=== PATIENT | male | born 1990 | race Caucasian/White ===

== ENCOUNTER 2017-07-15 17:12 | Emergency (ER) | payer MEDICAID ==
[2017-07-15] MEDS ORDERED: Sodium Chloride 0.9% 10 ML Syringe FLUSH PRN ×2 (17:31→21:25)
[2017-07-15] MEDS ORDERED: Sodium Chloride 0.9% 1,000 ML IV ONE (17:33)
[2017-07-15 17:43] VITALS: BP 114/62
[2017-07-15 18:33] LABS: CHLORIDE,CL 100 mmol/L (98-107); SODIUM,NA 131 mmol/L (136-145)
[2017-07-15] MEDS ORDERED: Iopamidol 612 MG/ML 100 ML Bottle IVPUSH ONE (18:47)
--- NOTE | 2017-07-16 02:23 | EDM.PDOC ---
ED HPI GENERAL MEDICAL PROBLEM - General Chief Complaint: Fever Stated Complaint: cancer pt running a fever Time Seen by Provider: 07/15/17 17:13 Source of Information: Reports: Patient History Limitations: Reports: No Limitations - History of Present Illness INITIAL COMMENTS - FREE TEXT/NARRATIVE: Pt. presents to ER with complaints of fever, weakness, and muscle pain. 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 Pt. states that he developed onset of these symptoms several days ago. Last chemo was 07/12/17. States that he is not experiencing any chest pain or shortness of breath. No abdominal pain. Pt. had a cystic abdominal lesion drained recently. Denies any cough, dysuria, or chest congestion. 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 Social & Family History - Tobacco Use Smoking Status *Q: Former Smoker Years of Tobacco use: 12 Packs/Tins Daily: 0.5 Used Tobacco, but Quit: Yes Month/Year Tobacco Last Used: june 2017 Tobacco Use Comment: relates quit a couple weeks ago - Alcohol Use Days Per Week of Alcohol Use: 0 Number of Drinks Per Day: 1 Total Drinks Per Week: 0 - Recreational Drug Use Recreational Drug Use: Yes Drug Use in Last 12 Months: Yes Recreational Drug Type: Reports: Marijuana/Hashish Recreational Drug Use Frequency: Daily ED ROS GENERAL - Review of Systems Review Of Systems: See Below Constitutional: Reports: Fever, Chills, Malaise, Weakness HEENT: Reports: No Symptoms Respiratory: Reports: No Symptoms Cardiovascular: Reports: No Symptoms Endocrine: Reports: No Symptoms GI/Abdominal: Reports: Other (See HPI) : Reports: No Symptoms Musculoskeletal: Reports: No Symptoms Skin: Reports: No Symptoms Neurological: Reports: No Symptoms Psychiatric: Reports: No Symptoms Hematologic/Lymphatic: Reports: No Symptoms Immunologic: Reports: No Symptoms ED EXAM, GENERAL - Physical Exam Exam: See Below Exam Limited By: No Limitations General Appearance: Alert, WD/WN, No Apparent Distress Eye Exam: Bilateral Eye: EOMI, Normal Fundi, Normal Inspection, PERRL Ears: Normal External Exam, Normal Canal, Hearing Grossly Normal, Normal TMs Ear Exam: Bilateral Ear: Auricle Normal, Canal Normal, TM normal Nose: Normal Inspection, Normal Mucosa, No Blood Throat/Mouth: Normal Inspection, Normal Lips, Normal Teeth, Normal Gums, Normal Oropharynx, Normal Voice, No Airway Compromise Head: Atraumatic, Normocephalic Neck: Normal Inspection, Supple, Non-Tender, Full Range of Motion Respiratory/Chest: No Respiratory Distress, Lungs Clear, Normal Breath Sounds, No Accessory Muscle Use, Chest Non-Tender Cardiovascular: Normal Peripheral Pulses, Regular Rate, Rhythm, No Edema, No Gallop, No JVD, No Murmur, No Rub Peripheral Pulses: 4+: Radial (L), Radial (R) GI/Abdominal: Normal Bowel Sounds, Soft, Non-Tender, No Organomegaly, No Distention, No Abnormal Bruit, No Mass (Male) Exam: Deferred Rectal (Males) Exam: Deferred Back Exam: Normal Inspection, Full Range of Motion, NT Extremities: Normal Inspection, Normal Range of Motion, Non-Tender, Normal Capillary Refill, No Pedal Edema Neurological: Alert, Oriented, CN II-XII Intact, Normal Cognition, Normal Gait, Normal Reflexes, No Motor/Sensory Deficits Psychiatric: Normal Affect, Normal Mood Skin Exam: Warm, Dry, Intact, Normal Color, No Rash EKG INTERPRETATION Rhythm: NSR [place]: Normal P-Wave: Present QRS: Normal ST-T: Normal QT: Normal Course - Vital Signs Last Recorded V/S: Last Vital Signs Temp 38.4 C H 07/15/17 17:13 Pulse 71 07/15/17 17:13 Resp 16 07/15/17 17:13 BP 114/62 07/15/17 17:13 Pulse Ox 100 07/15/17 17:13 - Orders/Labs/Meds Orders: Active Orders 24 hr Category Date Time Status Chest 2V [CR] Stat Exams 07/15/17 17:31 Taken Chest Abdomen Pelvis w Cont [CT] Stat Exams 07/15/17 18:42 Taken CULTURE BLOOD [BC] Stat Lab 07/15/17 17:47 Received CULTURE BLOOD [BC] Stat Lab 07/15/17 17:53 Received INFLUENZA A+B AG SCREEN [RM] Stat Lab 07/15/17 17:54 Ordered Heparin Sodium [Heparin Lock Flush 100 Units/ML] Med 07/15/17 20:05 Active 500 units IVPUSH ASDIRECTED PRN Sodium Chloride 0.9% [Saline Flush] Med 07/15/17 21:25 Active 20 ml FLUSH ASDIRECTED PRN Blood Culture x2 Reflex Set [OM.PC] Stat Oth 07/15/17 17:32 Ordered Peripheral IV Insertion Adult [OM.PC] Routine Oth 07/15/17 17:32 Ordered Medication Orders Heparin Sodium (Porcine) (Heparin Lock Flush 100 Units/Ml) 500 units IVPUSH ASDIRECTED PRN PRN Reason: Keep Vein Open Last Admin: 07/15/17 21:26 Dose: 500 units Sodium Chloride (Saline Flush) 20 ml FLUSH ASDIRECTED PRN PRN Reason: Keep Vein Open Last Admin: 07/15/17 21:26 Dose: 20 ml Labs: Laboratory Tests 07/15/17 07/15/17 07/15/17 Range/Units 17:47 17:47 17:47 WBC 11.2 H (4.0-10.0) x10^3/uL RBC 2.60 L (4.5-6.0) x10^6/uL Hgb 9.0 L (14.0-18.0) g/dL Hct 26.4 L (40.0-52.0) % MCV 101.5 H (78.0-93.0) fL MCH 34.6 H (26.0-32.0) pg MCHC 34.1 (32.0-36.0) g/dL RDW Coeff of [place] 16.4 H (10.0-15.0) % Plt Count 129 L (130-400) x10^3/uL Neut % (Auto) 94.7 H (50.0-80.0) % Lymph % (Auto) 3.9 L (25.0-50.0) % [place] % (Auto) 0.4 L (2.0-11.0) % Eos % (Auto) 0.9 (0.0-4.0) % Baso % (Auto) 0.1 L (0.2-1.2) % PT 11.2 (9.6-11.4) SEC INR 1.1 L (2.0-3.5) Sodium 131 L (136-145) mmol/L Potassium 4.6 (3.5-5.1) mmol/L Chloride 100 (98-107) mmol/L Carbon Dioxide 24 (21-32) mmol/L Anion Gap 11.6 (10-20) mmol/L BUN 20 H (7-18) mg/dL Creatinine 1.2 (0.70-1.30) mg/dL Est Cr Clr Drug Dosing 80.90 mL/min Estimated GFR (MDRD) > 60 Glucose 106 (74-106) mg/dL Lactic Acid (0.4-2.0) mmol/L Calcium 8.0 L (8.5-10.1) mg/dL Corrected Calcium 8.96 (8.5-10.1) mg/dL Phosphorus 2.7 (2.6-4.7) mg/dL Magnesium 1.7 L (1.8-2.4) mg/dL Total Bilirubin 1.3 H (0.2-1.0) mg/dL AST 153 H (15-37) U/L ALT 130 H (16-63) U/L Alkaline Phosphatase 82 (46-116) U/L Troponin I (<=0.056) ng/mL C-Reactive Protein 10.4 H (<=0.9) mg/dL NT-Pro-B Natriuret Pep (<=125) pg/mL Total Protein 5.4 L (6.4-8.2) g/dL Albumin 2.8 L (3.4-5.0) g/dL Globulin 2.6 Albumin/Globulin Ratio 1.08 TSH, Ultra Sensitive 1.609 (0.358-3.74) uIU/mL Urine Color (YELLOW) Urine Appearance (CLEAR) Urine pH (5.0-8.0) Ur Specific [place] Urine Protein (NEGATIVE) mg/dL Urine Glucose (UA) (NEGATIVE) mg/dL Urine Ketones (NEGATIVE) mg/dL Urine Occult Blood (NEGATIVE) Urine Nitrite (NEGATIVE) Urine Bilirubin (NEGATIVE) Urine Urobilinogen (0.2) EU/dL Ur Leukocyte Esterase (NEGATIVE) Urine RBC (NOT SEEN) /HPF Urine WBC (NOT SEEN) /HPF Ur Squamous Epith Cells (NEGATIVE) /HPF Urine Bacteria (NEGATIVE) /HPF Urine Mucus (NEGATIVE) /LPF 07/15/17 07/15/17 07/15/17 Range/Units 17:47 17:47 18:25 WBC (4.0-10.0) x10^3/uL RBC (4.5-6.0) x10^6/uL Hgb (14.0-18.0) g/dL Hct (40.0-52.0) % MCV (78.0-93.0) fL MCH (26.0-32.0) pg MCHC (32.0-36.0) g/dL RDW Coeff of [place] (10.0-15.0) % Plt Count (130-400) x10^3/uL Neut % (Auto) (50.0-80.0) % Lymph % (Auto) (25.0-50.0) % [place] % (Auto) (2.0-11.0) % Eos % (Auto) (0.0-4.0) % Baso % (Auto) (0.2-1.2) % PT (9.6-11.4) SEC INR (2.0-3.5) Sodium (136-145) mmol/L Potassium (3.5-5.1) mmol/L Chloride (98-107) mmol/L Carbon Dioxide (21-32) mmol/L Anion Gap (10-20) mmol/L BUN (7-18) mg/dL Creatinine (0.70-1.30) mg/dL Est Cr Clr Drug Dosing mL/min Estimated GFR (MDRD) Glucose (74-106) mg/dL Lactic Acid 1.2 (0.4-2.0) mmol/L Calcium (8.5-10.1) mg/dL Corrected Calcium (8.5-10.1) mg/dL Phosphorus (2.6-4.7) mg/dL Magnesium (1.8-2.4) mg/dL Total Bilirubin (0.2-1.0) mg/dL AST (15-37) U/L ALT (16-63) U/L Alkaline Phosphatase (46-116) U/L Troponin I < 0.017 (<=0.056) ng/mL C-Reactive Protein (<=0.9) mg/dL NT-Pro-B Natriuret Pep 569 H (<=125) pg/mL Total Protein (6.4-8.2) g/dL Albumin (3.4-5.0) g/dL Globulin Albumin/Globulin Ratio TSH, Ultra Sensitive (0.358-3.74) uIU/mL Urine Color [place] H (YELLOW) Urine Appearance Slightly cloudy H (CLEAR) Urine pH 6.5 (5.0-8.0) Ur Specific [place] 1.015 Urine Protein 30 H (NEGATIVE) mg/dL Urine Glucose (UA) Negative (NEGATIVE) mg/dL Urine Ketones Negative (NEGATIVE) mg/dL Urine Occult Blood Negative (NEGATIVE) Urine Nitrite Negative (NEGATIVE) Urine Bilirubin Small H (NEGATIVE) Urine Urobilinogen 1.0 (0.2) EU/dL Ur Leukocyte Esterase Trace H (NEGATIVE) Urine RBC 0-5 (NOT SEEN) /HPF Urine WBC 5-10 H (NOT SEEN) /HPF Ur Squamous Epith Cells Rare (NEGATIVE) /HPF Urine Bacteria Few H (NEGATIVE) /HPF Urine Mucus Few H (NEGATIVE) /LPF Meds: Medications Generic Name Dose Route Start Last Admin Trade Name Freq PRN Reason Stop Dose Admin Heparin Sodium (Porcine) 500 units 07/15/17 20:05 07/15/17 21:26 Heparin Lock Flush 100 Units/Ml IVPUSH 500 units ASDIRECTED PRN Administration Keep Vein Open Sodium Chloride 20 ml 07/15/17 21:25 07/15/17 21:26 Saline Flush FLUSH 20 ml ASDIRECTED PRN Administration Keep Vein Open Discontinued Medications Generic Name Dose Route Start Last Admin Trade Name Freq PRN Reason Stop Dose Admin Sodium Chloride 1,000 mls @ 1,000 mls/hr 07/15/17 17:33 07/15/17 17:35 Normal Saline IV 07/15/17 18:32 1,000 mls/hr .BOLUS ONE Administration Iopamidol 100 ml 07/15/17 18:47 07/15/17 19:20 Isovue-300 (61%) IVPUSH 07/15/17 18:48 100 ml ONETIME ONE Administration Sodium Chloride 10 ml 07/15/17 17:31 Saline Flush FLUSH ASDIRECTED PRN Keep Vein Open - Radiology Interpretation Free Text/Narrative:: Retroperitoneal lymphadenopathy consistent with metastatic testicular CA, unchanged from previous. Departure - Departure Time of Disposition: 21:30 Disposition: Against Medical Advice 07 Condition: Good Clinical Impression: Fever of unknown origin - Discharge Information Referrals: PCP,Not In Area [Primary Care Provider] - - My Orders Last 24 Hours: My Active Orders 07/15/17 17:31 Chest 2V [CR] Stat 07/15/17 17:32 Blood Culture x2 Reflex Set [OM.PC] Stat Peripheral IV Insertion Adult [OM.PC] Routine 07/15/17 17:47 CULTURE BLOOD [BC] Stat 07/15/17 17:53 CULTURE BLOOD [BC] Stat 07/15/17 17:54 INFLUENZA A+B AG SCREEN [RM] Stat 07/15/17 18:42 Chest Abdomen Pelvis w Cont [CT] Stat 07/15/17 20:05 Heparin Sodium [Heparin Lock Flush 100 Units/ML] 500 units IVPUSH ASDIRECTED PRN 07/15/17 21:25 Sodium Chloride 0.9% [Saline Flush] 20 ml FLUSH ASDIRECTED PRN - Assessment/Plan Last 24 Hours: My Active Orders 07/15/17 17:31 Chest 2V [CR] Stat 07/15/17 17:32 Blood Culture x2 Reflex Set [OM.PC] Stat Peripheral IV Insertion Adult [OM.PC] Routine 07/15/17 17:47 CULTURE BLOOD [BC] Stat 07/15/17 17:53 CULTURE BLOOD [BC] Stat 07/15/17 17:54 INFLUENZA A+B AG SCREEN [RM] Stat 07/15/17 18:42 Chest Abdomen Pelvis w Cont [CT] Stat 07/15/17 20:05 Heparin Sodium [Heparin Lock Flush 100 Units/ML] 500 units IVPUSH ASDIRECTED PRN 07/15/17 21:25 Sodium Chloride 0.9% [Saline Flush] 20 ml FLUSH ASDIRECTED PRN Assessment:: Fever or unknown origin Plan: Discussed findings with Dr. Nicholson, patient's oncologist. He advised observation admission and IV antibiotics with trending of labs. Pt. had already been requesting to be discharged by this time, stating he wanted to go home and "vape" marijuana. Discussed the findings and recommendations with the pt. He was informed that there was no obvious source of his fever identified, and that he may have a potentially life threatening problem, such as sepsis secondary to infected port, and that his chemotherapy was exacerbating the problem because his immune system is diminished. He stated that he needed to go home to "take care of something", stating he would come back for admission. Pt. was did not return. Attempted to contact the pt. several times but was unsuccessful, as pt. was not answering his phone. I did have pt. sign out AMA in the event that he didn't return.
== END 2017-07-15 21:30 | disposition left against medical advice (07) ==
LOC: VM.ED 17:12
DX: R50.9 Fever, unspecified (principal); Z87.891 Personal history of nicotine dependence
CPT/HCPCS: 36415; 71046; 71260; 74177; 80053; 81001; 83605; 83735; 83880; 84100; 84443; 84484; 85025; 85610; 86140; 87040; 87804; 87804-59; J1642; J7030; J7050; Q9967

== ENCOUNTER 2017-07-29 22:17 | Emergency (ER) | payer MEDICAID ==
[2017-07-29] MEDS ORDERED: Sodium Chloride 0.9% 10 ML Syringe FLUSH PRN (22:22)
--- NOTE | 2017-07-29 22:49 | EDM.PDOC ---
ED HPI GENERAL MEDICAL PROBLEM - General Stated Complaint: fever Time Seen by Provider: 07/29/17 22:17 Source of Information: Reports: Patient History Limitations: Reports: No Limitations - History of Present Illness INITIAL COMMENTS - FREE TEXT/NARRATIVE: Patient comes in to the emergency department tonight after a one-day history of fever of approximately 101. Patient is unknown oncology patient with testicular CA and a kidney tumor. Patient underwent chemotherapy on Monday. This was his last treatment in the series. He is a consultation with surgeon to have his kidney and tumor removed possibly here in the near future. Patient was seen for the fever yesterday in the clinic labs were drawn and patient was sent home. He called his oncologist and to tell him that the fever was still present and oncologist suggested he come in and have fluids and labs drawn. Patient denies having any other concerns denies shortness of breath, lightheaded, dizzy, blurred vision, or chest pain. Does have a chronic cough of approximately 3 weeks. States that it has not gotten any worse. He considers it more of a nuisance but it has remained consistent. Severity: Mild Improves with: Reports: None Worsens with: Reports: None - Related Data Allergies Allergy/AdvReac Type Severity Reaction Status Date / Time No Known Drug Allergies Allergy Other Verified 07/29/17 23:02 Home Meds: Home Meds Gabapentin [Neurontin] 300 mg BEDTIME 07/15/17 [History] Ondansetron HCl [Zofran] 4 mg Q4H PRN 07/15/17 [History] Past Medical History - Past Health History Medical/Surgical History: Denies Medical/Surgical History Oncologic (Cancer) History: Reports: Prostate, Other (See Below) Other Oncologic History: mets to abd ED ROS GENERAL - Review of Systems Review Of Systems: See Below Constitutional: Reports: Fever, Chills, Fatigue Respiratory: Reports: Cough Cardiovascular: Reports: No Symptoms Endocrine: Reports: No Symptoms GI/Abdominal: Reports: No Symptoms Musculoskeletal: Reports: No Symptoms Skin: Reports: No Symptoms Neurological: Reports: No Symptoms Psychiatric: Reports: No Symptoms Immunologic: Reports: No Symptoms ED EXAM, GENERAL - Physical Exam Exam: See Below Exam Limited By: No Limitations General Appearance: Alert, WD/WN, No Apparent Distress Throat/Mouth: Other (major dental decay with multiple missing teeth and chronic gingivitis ) Head: Atraumatic, Normocephalic Respiratory/Chest: No Respiratory Distress, Lungs Clear, Normal Breath Sounds, No Accessory Muscle Use Cardiovascular: Normal Peripheral Pulses, Regular Rate, Rhythm, No Edema Extremities: Normal Inspection, Normal Range of Motion, Non-Tender Course - Vital Signs Last Recorded V/S: Last Vital Signs Temp 37.7 C 07/29/17 23:17 Pulse 89 07/29/17 22:20 Resp 14 07/29/17 22:20 BP 116/58 L 07/29/17 22:20 Pulse Ox 97 07/29/17 22:20 - Orders/Labs/Meds Orders: Active Orders 24 hr Category Date Time Status Chest 2V [CR] Stat Exams 07/29/17 22:47 Taken CULTURE BLOOD [BC] Stat Lab 07/29/17 22:47 Ordered CULTURE BLOOD [BC] Stat Lab 07/29/17 22:47 Ordered CULTURE URINE [RM] Stat Lab 07/29/17 23:50 Ordered UA W/MICROSCOPIC [URIN] Stat Lab 07/29/17 23:39 Ordered Sodium Chloride 0.9% [Saline Flush] Med 07/29/17 22:22 Active 10 ml FLUSH ASDIRECTED PRN Blood Culture x2 Reflex Set [OM.PC] Stat Oth 07/29/17 22:47 Ordered Peripheral IV Insertion Adult [OM.PC] Stat Oth 07/29/17 22:21 Ordered Medication Orders Sodium Chloride (Saline Flush) 10 ml FLUSH ASDIRECTED PRN PRN Reason: Keep Vein Open Labs: Laboratory Tests 07/29/17 07/29/17 07/29/17 Range/Units 22:52 22:52 22:52 WBC 12.5 H (4.0-10.0) x10^3/uL RBC 2.73 L (4.5-6.0) x10^6/uL Hgb 9.6 L (14.0-18.0) g/dL Hct 28.1 L (40.0-52.0) % MCV 102.9 H (78.0-93.0) fL MCH 35.2 H (26.0-32.0) pg MCHC 34.2 (32.0-36.0) g/dL RDW Coeff of [place] 17.2 H (10.0-15.0) % Plt Count 409 H D (130-400) x10^3/uL Neut % (Auto) 92.7 H (50.0-80.0) % Lymph % (Auto) 4.1 L (25.0-50.0) % [place] % (Auto) 1.0 L (2.0-11.0) % Eos % (Auto) 2.0 (0.0-4.0) % Baso % (Auto) 0.2 (0.2-1.2) % Sodium 133 L (136-145) mmol/L Potassium 4.3 (3.5-5.1) mmol/L Chloride 100 (98-107) mmol/L Carbon Dioxide 23 (21-32) mmol/L Anion Gap 14.3 (10-20) mmol/L BUN 15 (7-18) mg/dL Creatinine 1.4 H (0.70-1.30) mg/dL Est Cr Clr Drug Dosing TNP Estimated GFR (MDRD) > 60 Glucose 95 (74-106) mg/dL Lactic Acid 1.2 (0.4-2.0) mmol/L Calcium 7.9 L (8.5-10.1) mg/dL Corrected Calcium 8.78 (8.5-10.1) mg/dL Total Bilirubin 1.4 H (0.2-1.0) mg/dL AST 46 H (15-37) U/L ALT 31 (16-63) U/L Alkaline Phosphatase 85 (46-116) U/L NT-Pro-B Natriuret Pep (<=125) pg/mL Total Protein 5.5 L (6.4-8.2) g/dL Albumin 2.9 L (3.4-5.0) g/dL Globulin 2.6 Albumin/Globulin Ratio 1.12 Urine Color (YELLOW) Urine Appearance (CLEAR) Urine pH (5.0-8.0) Ur Specific [place] Urine Protein (NEGATIVE) mg/dL Urine Glucose (UA) (NEGATIVE) mg/dL Urine Ketones (NEGATIVE) mg/dL Urine Occult Blood (NEGATIVE) Urine Nitrite (NEGATIVE) Urine Bilirubin (NEGATIVE) Urine Urobilinogen (0.2) EU/dL Ur Leukocyte Esterase (NEGATIVE) Urine RBC (NOT SEEN) /HPF Urine WBC (NOT SEEN) /HPF Ur Squamous Epith Cells (NEGATIVE) /HPF Urine Bacteria (NEGATIVE) /HPF Urine Mucus (NEGATIVE) /LPF 07/29/17 07/29/17 Range/Units 22:52 23:39 WBC (4.0-10.0) x10^3/uL RBC (4.5-6.0) x10^6/uL Hgb (14.0-18.0) g/dL Hct (40.0-52.0) % MCV (78.0-93.0) fL MCH (26.0-32.0) pg MCHC (32.0-36.0) g/dL RDW Coeff of [place] (10.0-15.0) % Plt Count (130-400) x10^3/uL Neut % (Auto) (50.0-80.0) % Lymph % (Auto) (25.0-50.0) % [place] % (Auto) (2.0-11.0) % Eos % (Auto) (0.0-4.0) % Baso % (Auto) (0.2-1.2) % Sodium (136-145) mmol/L Potassium (3.5-5.1) mmol/L Chloride (98-107) mmol/L Carbon Dioxide (21-32) mmol/L Anion Gap (10-20) mmol/L BUN (7-18) mg/dL Creatinine (0.70-1.30) mg/dL Est Cr Clr Drug Dosing Estimated GFR (MDRD) Glucose (74-106) mg/dL Lactic Acid (0.4-2.0) mmol/L Calcium (8.5-10.1) mg/dL Corrected Calcium (8.5-10.1) mg/dL Total Bilirubin (0.2-1.0) mg/dL AST (15-37) U/L ALT (16-63) U/L Alkaline Phosphatase (46-116) U/L NT-Pro-B Natriuret Pep 2268 H (<=125) pg/mL Total Protein (6.4-8.2) g/dL Albumin (3.4-5.0) g/dL Globulin Albumin/Globulin Ratio Urine Color Yellow (YELLOW) Urine Appearance Clear (CLEAR) Urine pH 6.5 (5.0-8.0) Ur Specific [place] 1.010 Urine Protein Negative (NEGATIVE) mg/dL Urine Glucose (UA) Negative (NEGATIVE) mg/dL Urine Ketones Negative (NEGATIVE) mg/dL Urine Occult Blood Trace-intact H (NEGATIVE) Urine Nitrite Negative (NEGATIVE) Urine Bilirubin Negative (NEGATIVE) Urine Urobilinogen 0.2 (0.2) EU/dL Ur Leukocyte Esterase Negative (NEGATIVE) Urine RBC 5-10 H (NOT SEEN) /HPF Urine WBC 0-5 (NOT SEEN) /HPF Ur Squamous Epith Cells Not seen (NEGATIVE) /HPF Urine Bacteria Few H (NEGATIVE) /HPF Urine Mucus Few H (NEGATIVE) /LPF Meds: Medications Generic Name Dose Route Start Last Admin Trade Name Freq PRN Reason Stop Dose Admin Sodium Chloride 10 ml 07/29/17 22:22 Saline Flush FLUSH ASDIRECTED PRN Keep Vein Open Discontinued Medications Generic Name Dose Route Start Last Admin Trade Name Freq PRN Reason Stop Dose Admin Acetaminophen 650 mg 07/29/17 22:53 07/29/17 23:17 Tylenol PO 07/29/17 22:54 650 mg NOW ONE Administration Ceftriaxone Sodium 1 gm 07/29/17 23:30 07/29/17 23:39 Rocephin IVPUSH 07/29/17 23:31 1 gm ONETIME ONE Administration Sodium Chloride 1,000 mls @ 1,000 mls/hr 07/29/17 22:22 07/29/17 22:51 Normal Saline IV 07/29/17 23:21 1,000 mls/hr ONETIME ONE Administration - Re-Assessments/Exams Free Text/Narrative Re-Assessment/Exam: 07/30/17 00:14 Pt feels much better with the fluid and Tylenol. Does not wish to be admitted and would like to go home. Vital signs within normal limits. Departure - Departure Time of Disposition: 00:15 Disposition: Home, Self-Care 01 Condition: Good Clinical Impression: Fever Qualifiers: Fever type: unspecified Qualified Code(s): R50.9 - Fever, unspecified - Discharge Information Instructions: Fever, Adult Referrals: PCP,None [Primary Care Provider] - Additional Instructions: 1. rest 2. Take OTC Tylenol or ibuprofen for pain or fever 3. Continue to increase her water intake 4. Follow up with primary care provider next week 5. Return to the emergency department if symptoms worsen 6. Activity and diet as tolerated - Problem List Review Problem List Initiated/Reviewed/Updated: Yes - My Orders Last 24 Hours: My Active Orders 07/29/17 22:21 Peripheral IV Insertion Adult [OM.PC] Stat 07/29/17 22:22 Sodium Chloride 0.9% [Saline Flush] 10 ml FLUSH ASDIRECTED PRN 07/29/17 22:47 Chest 2V [CR] Stat CULTURE BLOOD [BC] Stat CULTURE BLOOD [BC] Stat Blood Culture x2 Reflex Set [OM.PC] Stat 07/29/17 23:39 UA W/MICROSCOPIC [URIN] Stat 07/29/17 23:50 CULTURE URINE [RM] Stat - Assessment/Plan Last 24 Hours: My Active Orders 07/29/17 22:21 Peripheral IV Insertion Adult [OM.PC] Stat 07/29/17 22:22 Sodium Chloride 0.9% [Saline Flush] 10 ml FLUSH ASDIRECTED PRN 07/29/17 22:47 Chest 2V [CR] Stat CULTURE BLOOD [BC] Stat CULTURE BLOOD [BC] Stat Blood Culture x2 Reflex Set [OM.PC] Stat 07/29/17 23:39 UA W/MICROSCOPIC [URIN] Stat 07/29/17 23:50 CULTURE URINE [RM] Stat Assessment:: 1. fever post chemo post 3 days Plan: 1. Labs completed in ER. results reviewed with pt 2. Xray completed in ER. Results reviewed with pt 3. IV started in ER and IV hydration given 4. Tylenol PO for fever 5. 11:29 WBC came back with elevated will order Rocephin IV now. 6. UA/UC collected in ER 7. [facility] consulted. Dr. Colón who is also the pt's oncologist. He recommends the patient can be discharged home. He would hold off on sending home oral antibiotics unless cultures come back positive. He did state that treating empirically with Rocephin in the ER is appropriate tough he suggests holding off on oral antibiotics unless a source is found at this point for it could be a viral fever secondary to a chemo reaction. Also give lasix 20mg prior to discharge and follow up in clinic on Monday. 8. Did recommend the pt stay over night to monitor him however he does not want to be admitted and understands the risk he is taking by going home.
[2017-07-29] MEDS: Sodium Chloride 0.9% 1,000 ML IV ONE (22:51)
[2017-07-29] MEDS: Acetaminophen 325 MG Tab PO ONE (23:17)
[2017-07-29 23:38] LABS: CHLORIDE,CL 100 mmol/L (98-107); SODIUM,NA 133 mmol/L (136-145)
[2017-07-29] MEDS: cefTRIAXone 1 GM Vial IVPUSH ONE (23:39)
[2017-07-29 23:57] VITALS: BP 116/58
[2017-07-30] MEDS: Furosemide 20 MG/2 ML VIAL IV ONE (00:06)
== END 2017-07-30 00:20 | disposition home or self-care (01) ==
LOC: VM.ED 22:17
DX: R50.2 Drug induced fever (principal); T45.1X5A Adverse effect of antineoplastic and immunosuppressive drugs, initial encounter; C62.90 Malignant neoplasm of unspecified testis, unspecified whether descended or undescended; Z79.899 Other long term (current) drug therapy
CPT/HCPCS: 36415; 71046; 80053; 81001; 83605; 83880; 85025; 87040; 87086; 96365; 96375; 99284; A9270-GY; J0696; J1940; J7030

== ENCOUNTER 2017-10-21 22:18 | Emergency (ER) | payer MEDICAID ==
--- NOTE | 2017-10-21 22:30 | EDM.PDOC ---
ED HPI GENERAL MEDICAL PROBLEM - General Chief Complaint: Abdominal Pain Stated Complaint: abdominal pains Time Seen by Provider: 10/21/17 22:27 Source of Information: Reports: Patient, Family, Old Records, RN, RN Notes Reviewed History Limitations: Reports: No Limitations - History of Present Illness INITIAL COMMENTS - FREE TEXT/NARRATIVE: 27 yo patient presents to the ED at [facility] with a 2 day history of abdominal pain and rectal bleeding and diarrhea for a few days. 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 He has underwent many chemo and radiation treatments since his diagnosis. History summarized: * 02/2011 - Enlarged left testicle. * 11/2011 - Further enlargement of left testicle. Onset of testicular pain. * 08/2012 - Left testis approximately 3" in length. Severe pain with movement. * 11/2012 - Continued enlargement and pain of the left testis. Onset of left sided abdominal pain. Unable to stand stright because of pain. * 02/20/2013 - Evaluated by Kadi Paige PA-C for testicular swelling, testicular and abdominal pain and constipation. Referred to Urology. * 03/25/2013 - Evaluated by Dr. Wilton Silvestre. Elevated beta HCG and AFP. Mixed germ cell tumor diagnosed by clinical and lab criteria. * 03/29/2013 - Radical left orchiectomy. No complications. Decreased pain following procedure. * 04/05/2013 - CT scan staging: metastatic mass left abdomen with involvement of nodes and mesentery. Obstructive left hydronephrosis. * 04/09/2013 - Referred to Oncology. Ongoing symptoms include left upper quadrant abdominal pain and severe constipation. * 04/11/2013 - [id number] Cycle 1: Cisplatin, Etoposide, Bleomycin * 05/01/2013 - [id number] Cycle 2: Cisplatin, Etoposide, Bleomycin * 05/23/2013 - [id number] Cycle 3: Cisplatin, Etoposide, Bleomycin * 06/13/2013 - [id number] Cycle 4: Cisplatin, Etoposide, Bleomycin Edd states that the delay from onset of symptoms (02/2011) to seeking medical attention (02/2013) was due to fear, embarrassment and lack of mecical insurance. He "put it out of (his) mind until he couldn't stand the pain." Edd denies an antecedent history of testicular trauma. He has not experienced any constitutional symptoms - fever, weight loss, night sweats. He does not have a past history of cryptorchidism. Family history is negative for testicular cancer or problems. No effect on erectile function. Edd's history is notable for premature and surgical resection of a Meckel's diverticulum in the first year of life. He has otherwise been in general good health. Edd has long standing psychosocial problems. He was incarcerated at age 19 x 8 months for robbery. He has not had any legal problems since that time. He has been homeless over the past 6 months - living with friends, grandparents and brother Elliot at various times. Most recently, he underwent a open resection of this large left retroperitoneal mass with left nephrectomy and drain placement on 08/30/[address] Cooper. His pain was controlled by anesthesia with an epidural in place through post- operative day 3 which was transitioned to patient controlled analgesia once this had been removed. His jones catheter was removed and he was able to mobilize on post-operative day 3. He quickly recovered at this point, his diet advanced and tolerating regular diet and mobilizing and voiding without issues. He was transitioned to oral pain medications which controlled his pain well on post-operative day 4. Case management was consulted for his difficult social and living situation. The channeled drain that was placed during surgery was removed prior to discharge. He was discharged on post-operative day [address] [facility] with plans to live with friends following this. He had a follow up appointment 1 week post op with Dr. Cooper for staple removal. Edd was admitted to [facility] on October 18, 2017 for chemotherapy, restaging and chemical dependency evaluation. On admission marijuana was discovered in his possesion. The charge nurse and security guards were notified. Edd was advised that Marijuana and paraphernalia are not allowed in [facility] and had to be confiscated and given to the police. After further discussion with medical and security staff, trying to hide the Marijuana in his hospital room and discussing the situation with the Drug Dependency counselor, Edd agreed to give up his drug supply and equipment. He was very angry (punching the wall, pulling out the phone cord, swearing, crying) . He stated that the supply was very expensive and that he had been betrayed. He signed an AMA document. Edd subsequently agreed to stay for his scheduled chemotherapy. Planned re-staging was put on hold. Edd stayed overnight. In the AM he was seen by the Chemical Dependency counselor. He refused to consider residential drug treatment (because his drug supply had been confiscated). He signed himself out AMA but indicated that he would return to reconsider the situation on 10/25/2017 (due for chemotherapy at that time). Onset Date: 10/20/17 Location: Reports: Abdomen Quality: Reports: Sharp, Stabbing, Throbbing Severity: Severe Improves with: Reports: None Worsens with: Reports: Movement Context: Denies: Sick Contact, Trauma Associated Symptoms: Reports: Other (rectal bleeding) Treatments MANUFACTURING ENGINEERING TECHNICIAN: Reports: Other (see below) (see HPI) Bilateral Lower Abdomen Pain Score (Numeric/FACES): 10 - Related Data Allergies Allergy/AdvReac Type Severity Reaction Status Date / Time No Known Drug Allergies Allergy Other Verified 10/21/17 22:31 Home Meds: Home Meds Ondansetron HCl [Zofran] 4 mg PO Q4H PRN 07/15/17 [History] Past Medical History - Past Health History Medical/Surgical History: Denies Medical/Surgical History Oncologic (Cancer) History: Reports: Prostate, Other (See Below) Other Oncologic History: mets to abd ED ROS GENERAL - Review of Systems Review Of Systems: See Below Constitutional: Reports: Weakness. Denies: Fever, Chills Respiratory: Denies: Shortness of Breath, Cough Cardiovascular: Denies: Chest Pain, Palpitations GI/Abdominal: Reports: Abdominal Pain, Bloody Stool, Diarrhea. Denies: Nausea, Vomiting Skin: Reports: No Symptoms Neurological: Reports: No Symptoms ED EXAM, GI/ABD - Physical Exam Exam: See Below Exam Limited By: No Limitations General Appearance: Alert, Anxious, Moderate Distress Respiratory/Chest: No Respiratory Distress, Lungs Clear, Normal Breath Sounds Cardiovascular: Normal Peripheral Pulses, Regular Rate, Rhythm GI/Abdominal Exam: Guarding, Rigid, Tender, Abnormal Bowel Sounds (Hypoactive) Neurological: Alert, Oriented Skin Exam: Dry, Intact, Cool, Pallor Course - Vital Signs Last Recorded V/S: Last Vital Signs Temp 36.7 C 10/22/17 01:29 Pulse 78 10/22/17 01:29 Resp 16 10/22/17 01:29 BP 116/68 10/22/17 01:29 Pulse Ox 100 10/22/17 01:29 - Orders/Labs/Meds Orders: Active Orders 24 hr Category Date Time Status Implanted Port Access [RC] ONETIME Care 10/21/17 22:45 Active Abdomen Pelvis w Cont [CT] Stat Exams 10/21/17 23:12 Taken DRUG SCREEN, URINE [URCHEM] Stat Lab 10/22/17 01:26 Ordered SALICYLATE [REF] Stat Lab 10/21/17 23:00 Received URINE DRUG SCREEN,POC [POC] Stat Lab 10/22/17 01:29 Ordered Magnesium Sulfate/Water [Magnesium Sulfate 4 GM in Med 10/22/17 01:42 Ordered Water 100 ML] 4 gm Premix Bag 1 bag IV ONETIME Morphine Med 10/22/17 01:43 Once 2 mg IVPUSH ONETIME ONE Piperacillin/Tazobactam [Zosyn] 4.5 gm Med 10/22/17 01:42 Ordered Sodium Chloride 0.9% [Normal Saline] 100 ml IV STAT Medication Orders Piperacillin Sod/Tazobactam (Sod 4.5 gm/ Sodium Chloride) 100 mls @ 200 mls/hr IV STAT ONE Stop: 10/22/17 02:11 Magnesium Sulfate 4 gm/ Premix 100 mls @ 25 mls/hr IV ONETIME ONE Stop: 10/22/17 05:41 Labs: Laboratory Tests 10/21/17 10/21/17 10/21/17 Range/Units 23:00 23:00 23:00 WBC 0.9 L* (4.0-10.0) x10^3/uL RBC 3.03 L (4.5-6.0) x10^6/uL Hgb 9.5 L (14.0-18.0) g/dL Hct 25.2 L (40.0-52.0) % MCV 83.2 D (78.0-93.0) fL MCH 31.4 (26.0-32.0) pg MCHC 37.7 H (32.0-36.0) g/dL RDW Coeff of [place] 11.6 (10.0-15.0) % Plt Count 54 L D (130-400) x10^3/uL Neut % (Auto) 29.3 L (50.0-80.0) % Lymph % (Auto) 64.0 H (25.0-50.0) % Grainger % (Auto) 2.2 (2.0-11.0) % Eos % (Auto) 4.5 H (0.0-4.0) % Baso % (Auto) 0.0 L (0.2-1.2) % Sodium 134 L (136-145) mmol/L Potassium 3.7 (3.5-5.1) mmol/L Chloride 101 (98-107) mmol/L Carbon Dioxide 24 (21-32) mmol/L Anion Gap 12.7 (10-20) mmol/L BUN 18 (7-18) mg/dL Creatinine 1.1 (0.70-1.30) mg/dL Est Cr Clr Drug Dosing 102.66 mL/min Estimated GFR (MDRD) > 60 Glucose 120 H (74-106) mg/dL Lactic Acid 1.3 (0.4-2.0) mmol/L Calcium 9.1 (8.5-10.1) mg/dL Corrected Calcium 9.82 (8.5-10.1) mg/dL Phosphorus 3.6 (2.6-4.7) mg/dL Magnesium 1.4 L (1.8-2.4) mg/dL Total Bilirubin 1.8 H (0.2-1.0) mg/dL AST 122 H (15-37) U/L ALT 136 H (16-63) U/L Alkaline Phosphatase 63 (46-116) U/L C-Reactive Protein 17.4 H (<=0.9) mg/dL Total Protein 6.6 (6.4-8.2) g/dL Albumin 3.1 L (3.4-5.0) g/dL Globulin 3.5 Albumin/Globulin Ratio 0.89 Urine Opiates Screen (NEGATIVE) Ur Buprenorphine Scrn (NEGATIVE) Ur Oxycodone Screen (NEGATIVE) Urine Methadone Screen (NEGATIVE) Acetaminophen < 10 L (10-30) ug/ml Ur Barbituates Screen (NEGATIVE) Ur Tricyclics Screen (NEGATIVE) Ur Amphetamines Screen (NEGATIVE) U Methamphetamines Scrn (NEGATIVE) Urine MDMA Screen (NEGATIVE) U Benzodiazepines Scrn (NEGATIVE) Urine Cocaine Screen (NEGATIVE) U Marijuana (THC) Screen (NEGATIVE) Ethyl Alcohol < 3 (0-3) mg/dL 10/22/17 Range/Units 01:29 WBC (4.0-10.0) x10^3/uL RBC (4.5-6.0) x10^6/uL Hgb (14.0-18.0) g/dL Hct (40.0-52.0) % MCV (78.0-93.0) fL MCH (26.0-32.0) pg MCHC (32.0-36.0) g/dL RDW Coeff of [place] (10.0-15.0) % Plt Count (130-400) x10^3/uL Neut % (Auto) (50.0-80.0) % Lymph % (Auto) (25.0-50.0) % Grainger % (Auto) (2.0-11.0) % Eos % (Auto) (0.0-4.0) % Baso % (Auto) (0.2-1.2) % Sodium (136-145) mmol/L Potassium (3.5-5.1) mmol/L Chloride (98-107) mmol/L Carbon Dioxide (21-32) mmol/L Anion Gap (10-20) mmol/L BUN (7-18) mg/dL Creatinine (0.70-1.30) mg/dL Est Cr Clr Drug Dosing mL/min Estimated GFR (MDRD) Glucose (74-106) mg/dL Lactic Acid (0.4-2.0) mmol/L Calcium (8.5-10.1) mg/dL Corrected Calcium (8.5-10.1) mg/dL Phosphorus (2.6-4.7) mg/dL Magnesium (1.8-2.4) mg/dL Total Bilirubin (0.2-1.0) mg/dL AST (15-37) U/L ALT (16-63) U/L Alkaline Phosphatase (46-116) U/L C-Reactive Protein (<=0.9) mg/dL Total Protein (6.4-8.2) g/dL Albumin (3.4-5.0) g/dL Globulin Albumin/Globulin Ratio Urine Opiates Screen Negative (NEGATIVE) Ur Buprenorphine Scrn Negative (NEGATIVE) Ur Oxycodone Screen Negative (NEGATIVE) Urine Methadone Screen Negative (NEGATIVE) Acetaminophen (10-30) ug/ml Ur Barbituates Screen Negative (NEGATIVE) Ur Tricyclics Screen Negative (NEGATIVE) Ur Amphetamines Screen Negative (NEGATIVE) U Methamphetamines Scrn Negative (NEGATIVE) Urine MDMA Screen Negative (NEGATIVE) U Benzodiazepines Scrn Negative (NEGATIVE) Urine Cocaine Screen Negative (NEGATIVE) U Marijuana (THC) Screen Positive H (NEGATIVE) Ethyl Alcohol (0-3) mg/dL Meds: Medications Generic Name Dose Route Start Last Admin Trade Name Freq PRN Reason Stop Dose Admin Piperacillin Sod/Tazobactam 100 mls @ 200 mls/hr 10/22/17 01:42 Sod 4.5 gm/ Sodium Chloride IV 10/22/17 02:11 STAT ONE Magnesium Sulfate 4 gm/ Premix 100 mls @ 25 mls/hr 10/22/17 01:42 IV 10/22/17 05:41 ONETIME ONE Discontinued Medications Generic Name Dose Route Start Last Admin Trade Name Freq PRN Reason Stop Dose Admin Sodium Chloride 1,000 mls @ 999 mls/hr 10/21/17 23:31 10/21/17 23:41 Normal Saline IV 10/22/17 00:31 999 mls/hr ONETIME ONE Administration Iopamidol 100 ml 10/21/17 23:20 10/21/17 23:29 Isovue-300 (61%) IVPUSH 10/21/17 23:21 100 ml ONETIME ONE Administration Pantoprazole Sodium 40 mg 10/22/17 01:41 Protonix Iv IVPUSH 10/22/17 01:42 ONETIME ONE - Radiology Interpretation Free Text/Narrative:: CT Abd/Pelvis: Diffuse colonic wall thickening consistent with colitis; No bowel obstruction; Left nephrectomy. Small fluid collection could be postoperative seroma but recommend followup. Definite etiology is uncertain. See scanned report in EMR CT Results Date: 10/22/17 CT Results Time: 01:04 Departure - Departure Time of Disposition: 01:49 Disposition: DC/Tfer to Acute Hospital 02 Condition: Fair Clinical Impression: GI bleed Qualifiers: GI bleed type/associated pathology: unspecified gastrointestinal hemorrhage type Qualified Code(s): K92.2 - Gastrointestinal hemorrhage, unspecified Testicular cancer Qualifiers: Descendance of testis: descended Laterality: left Qualified Code(s): C62.12 - Malignant neoplasm of descended left testis - Discharge Information *PRESCRIPTION DRUG MONITORING PROGRAM REVIEWED*: Not Applicable *COPY OF PRESCRIPTION DRUG MONITORING REPORT IN PATIENT SUDHEER: Not Applicable Forms: Interfacility Transfer [place] ED Communication - ED Communication Date/Time Date: 10/22/17 Time Called: :26 - Discussed Case With (1) Discussed Case With (1): Admitting Provider (Dr. Perez, Hospitalist) - Conversation Summary Admitting Provider Agreed to Patient's Admission: Yes Patient Aware of Amendments fo Care Plan: Yes - Problem List Review Problem List Initiated/Reviewed/Updated: Yes - My Orders Last 24 Hours: My Active Orders 10/21/17 22:45 Implanted Port Access [RC] ONETIME 10/21/17 23:00 SALICYLATE [REF] Stat 10/21/17 23:12 Abdomen Pelvis w Cont [CT] Stat 10/22/17 01:26 DRUG SCREEN, URINE [URCHEM] Stat 10/22/17 01:29 URINE DRUG SCREEN,POC [POC] Stat 10/22/17 01:42 Magnesium Sulfate/Water [Magnesium Sulfate 4 GM in Water 100 ML] 4 gm Premix Bag 1 bag IV ONETIME Piperacillin/Tazobactam [Zosyn] 4.5 gm Sodium Chloride 0.9% [Normal Saline] 100 ml IV STAT 10/22/17 01:43 Morphine 2 mg IVPUSH ONETIME ONE - Assessment/Plan Last 24 Hours: My Active Orders 10/21/17 22:45 Implanted Port Access [RC] ONETIME 10/21/17 23:00 SALICYLATE [REF] Stat 10/21/17 23:12 Abdomen Pelvis w Cont [CT] Stat 10/22/17 01:26 DRUG SCREEN, URINE [URCHEM] Stat 10/22/17 01:29 URINE DRUG SCREEN,POC [POC] Stat 10/22/17 01:42 Magnesium Sulfate/Water [Magnesium Sulfate 4 GM in Water 100 ML] 4 gm Premix Bag 1 bag IV ONETIME Piperacillin/Tazobactam [Zosyn] 4.5 gm Sodium Chloride 0.9% [Normal Saline] 100 ml IV STAT 10/22/17 01:43 Morphine 2 mg IVPUSH ONETIME ONE Assessment:: GI Bleed Plan: Case discussed Dr. Newsome. Patient accepted in transfer. Patient will be sent ALS. Patient agrees with transfer to [facility]. Patient transferred out late due to waiting on CT scan report.
[2017-10-21] MEDS ORDERED: Iopamidol 612 MG/ML 100 ML Bottle IVPUSH ONE (23:20)
[2017-10-21] MEDS ORDERED: Sodium Chloride 0.9% 1,000 ML IV ONE (23:31)
[2017-10-21 23:33] LABS: CHLORIDE,CL 101 mmol/L (98-107); SODIUM,NA 134 mmol/L (136-145)
[2017-10-21 23:49] LABS: ACETAMINOPHEN < 10 ug/ml (10-30); ANION GAP 12.7 mmol/L (10-20)
[2017-10-22 01:30] VITALS: BP 116/68
[2017-10-22] MEDS ORDERED: Pantoprazole 40 MG Vial IVPUSH ONE (01:41)
[2017-10-22] MEDS ORDERED: Magnesium Sulfate/Water 4 GM in Premix Bag 1 BAG IV ONE (01:42)
[2017-10-22] MEDS ORDERED: Piperacillin/Tazobactam 4.5 GM in Sodium Chloride 0.9% 100 ML IV ONE (01:42)
[2017-10-22] MEDS ORDERED: Morphine 2 MG/ML Syringe IVPUSH ONE (01:43)
== END 2017-10-22 02:20 | disposition short-term general hospital (02) ==
LOC: VM.ED 22:18
DX: K92.2 Gastrointestinal hemorrhage, unspecified (principal); C62.12 Malignant neoplasm of descended left testis
CPT/HCPCS: 74177; 80053; 80305; 80349; 83605; 83735; 84100; 85025; 86140; 96361; 96365; 96368; 96375; 99285; C9113; G0480; J2270; J2543; J3475; J7030; J7050; Q9967

== ENCOUNTER 2019-05-13 00:10 | Emergency (ER) | payer MEDICAID, MEDICARE ==
[2019-05-13 00:15] VITALS: BP 140/93; PULSE 72
[2019-05-13] MEDS ORDERED: Take Home: Amoxicillin/Clavulanate K 875-125 MG Tab, 2 Tab Pack PO ONE (00:25)
[2019-05-13] MEDS ORDERED: Take Home: Acetaminophen/HYDROcodone 325-5 MG, 5 Tab Pack PO ONE (00:25)
--- NOTE | 2019-05-13 02:18 | EDM.PDOC ---
ED HPI GENERAL MEDICAL PROBLEM - General Chief Complaint: ENT Problem Stated Complaint: pain/abscess tooth Time Seen by Provider: 05/13/19 00:22 Source of Information: Reports: Patient History Limitations: Reports: No Limitations - History of Present Illness INITIAL COMMENTS - FREE TEXT/NARRATIVE: Pt. presents to ER with complaints of dental pain that he has been experiencing for the past 4 days. Pt. states that it is located in L upper jaw area. Denies any fever or chills. No chest pain or shortness of breath. Pt. denies any nausea or vomiting. He has a history of severe dental decay. He does not have a dentist here in [place]. No unilateral neck swelling. No nausea, vomiting, or headache. Denies any occular pain/entrapment. Onset: Today Onset Date: 05/13/19 Location: Reports: Head, Face Tooth/Teeth Pain Score (Numeric/FACES): 10 - Related Data Allergies Allergy/AdvReac Type Severity Reaction Status Date / Time No Known Drug Allergies Allergy Other Verified 05/13/19 00:12 Home Meds: Home Meds . 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 - Past Surgical History GI Surgical History: Reports: Other (See Below) Other GI Surgeries/Procedures: tumor removal from abdomen Male Surgical History: Reports: Other (See Below) Other Male Surgeries/Procedures: left kidney removal Social & Family History - Tobacco Use Smoking Status *Q: Current Every Day Smoker Years of Tobacco use: 10 Packs/Tins Daily: 0.2 ED ROS GENERAL - Review of Systems Review Of Systems: See Below Constitutional: Reports: No Symptoms HEENT: Reports: Other (dental pain) Respiratory: Reports: No Symptoms Cardiovascular: Reports: No Symptoms Endocrine: Reports: No Symptoms GI/Abdominal: Reports: No Symptoms : Reports: No Symptoms Musculoskeletal: Reports: No Symptoms Skin: Reports: No Symptoms Neurological: Reports: No Symptoms Psychiatric: Reports: No Symptoms Hematologic/Lymphatic: Reports: No Symptoms Immunologic: Reports: No Symptoms ED EXAM, GENERAL - Physical Exam Exam: See Below Exam Limited By: No Limitations General Appearance: Alert, WD/WN, No Apparent Distress Eye Exam: Bilateral Eye: EOMI, Normal Fundi, Normal Inspection, PERRL Nose: Normal Inspection, Normal Mucosa, No Blood Throat/Mouth: Normal Inspection, Normal Lips, Normal Teeth, Normal Gums, Normal Oropharynx, Normal Voice, No Airway Compromise Head: Atraumatic, Normocephalic, Facial Swelling (swelling to L upper lip. No large abscess noted.) Neck: Normal Inspection, Supple, Non-Tender, Full Range of Motion Respiratory/Chest: No Respiratory Distress, Lungs Clear, Normal Breath Sounds, No Accessory Muscle Use, Chest Non-Tender Cardiovascular: Normal Peripheral Pulses, Regular Rate, Rhythm, No Edema, No Gallop, No JVD, No Murmur, No Rub Course - Vital Signs Last Recorded V/S: Last Vital Signs Temp 36.1 C 05/13/19 00:12 Pulse 72 05/13/19 00:12 Resp 18 05/13/19 00:12 BP 140/93 H 05/13/19 00:12 Pulse Ox 97 05/13/19 00:12 - Orders/Labs/Meds Meds: Medications Discontinued Medications Generic Name Dose Route Start Last Admin Trade Name Zack PRN Reason Stop Dose Admin Hydrocodone Bitart/Acetaminophen 1 packet 05/13/19 00:25 05/13/19 00:32 Take Home: Acetam/Hydrocodon 325-5 Mg, 5 Pack PO 05/13/19 00:26 1 packet ONETIME ONE Administration Amoxicillin/Clavulanate Potassium 1 packet 05/13/19 00:25 05/13/19 00:32 Take Home: Amox/Clavulanate 875-12, 2 Tab Pac PO 05/13/19 00:26 1 packet ONETIME ONE Administration Departure - Departure Time of Disposition: 02:22 Disposition: Home, Self-Care 01 Clinical Impression: Dental caries extending into dentin - Discharge Information Instructions: Acetaminophen; Hydrocodone tablets or capsules, Amoxicillin; Clavulanic Acid tablets, Dental Abscess, [id number], Probiotics Referrals: PCP,Unobtain [Primary Care Provider] - Forms: ED Department Discharge Additional Instructions: Augmentin 875mg 1 twice daily for 10 days Ibuprofen 200mg 3 tabs every 6 hours as needed for pain Platinum 5/325mg 1 tab every 4-6 hours as needed for pain You need to find a dentist as soon as possible. Sepsis Event Note - Evaluation Sepsis Screening Result: No Definite Risk - Focused Exam Vital Signs: Vital Signs Temp Pulse Resp BP Pulse Ox 05/13/19 00:12 36.1 C 72 18 140/93 H 97 Date Exam was Performed: 05/13/19 Time Exam was Performed: 02:11
== END 2019-05-13 00:42 | disposition home or self-care (01) ==
LOC: VM.ED 00:10
DX: K02.9 Dental caries, unspecified (principal); F17.210 Nicotine dependence, cigarettes, uncomplicated
CPT/HCPCS: 99282; 99283; A9270

== ENCOUNTER 2019-07-06 02:30 | Emergency (ER) | payer MEDICARE ==
[2019-07-06 03:05] VITALS: BP 119/86; PULSE 84
--- NOTE | 2019-07-06 03:07 | EDM.PDOC ---
ED HPI GENERAL MEDICAL PROBLEM - General Chief Complaint: Laceration Stated Complaint: Laceration Time Seen by Provider: 07/06/19 02:55 Source of Information: Reports: Patient History Limitations: Reports: No Limitations - History of Present Illness INITIAL COMMENTS - FREE TEXT/NARRATIVE: Patient comes into the emergency department with complaint of a left hand laceration to his fourth digit. Patient states he was at home eating ice cream with a sharp knife and ended up dropping the knife and cutting his finger. Was able to control the bleeding with manual pressure immediately. Patient states that it does sting to touch the actual cut. Patient denies any CMS or range of motion concerns. Patient states he tried to clean the wound prior to coming to the emergency department. Patient states the pain is not as excessive when he is resting the finger however if he tries to move it there is more pain. Patient denies any other concerns or complaints at the present time Onset: Sudden Quality: Reports: Throbbing Severity: Moderate Improves with: Reports: Rest Worsens with: Reports: Movement Associated Symptoms: Reports: No Other Symptoms - Related Data Allergies Allergy/AdvReac Type Severity Reaction Status Date / Time No Known Drug Allergies Allergy Other Verified 05/13/19 00:12 Home Meds: Home Meds . 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 - Past Surgical History GI Surgical History: Reports: Other (See Below) Other GI Surgeries/Procedures: tumor removal from abdomen Male Surgical History: Reports: Other (See Below) Other Male Surgeries/Procedures: left kidney removal ED ROS GENERAL - Review of Systems Review Of Systems: See Below Constitutional: Reports: No Symptoms HEENT: Reports: No Symptoms Respiratory: Reports: No Symptoms Cardiovascular: Reports: No Symptoms Endocrine: Reports: No Symptoms GI/Abdominal: Reports: No Symptoms : Reports: No Symptoms Musculoskeletal: Reports: No Symptoms Skin: Reports: No Symptoms Neurological: Reports: No Symptoms Psychiatric: Reports: No Symptoms Hematologic/Lymphatic: Reports: No Symptoms Immunologic: Reports: No Symptoms ED EXAM, SKIN/RASH Exam: See Below Exam Limited By: No Limitations General Appearance: Alert, WD/WN, No Apparent Distress Head: Atraumatic, Normocephalic Neck: Normal Inspection, Supple, Non-Tender Respiratory/Chest: No Respiratory Distress, No Accessory Muscle Use, Chest Non- Tender Cardiovascular: Normal Peripheral Pulses, Regular Rate, Rhythm, No Edema Neurological: Alert, Oriented, Normal Gait Psychiatric: Normal Affect, Normal Mood Skin: Warm, Dry, Intact, Normal Color Location, Skin: Upper Extremity, Right Characteristics: Linear ED SKIN PROCEDURES - Laceration/Wound Repair Right Digit - 4th (Ring) Appearance: Linear Distal NVT: Neuro & Vascular Intact Anesthetic Type: Local Local Anesthesia - Lidocaine (Xylocaine): 1% Plain Local Anesthetic Volume: 3cc Skin Prep: Chlorhexidine (Hibiciens) Exploration/Debridement/Repair: Wound Explored, No Foreign Material Found Closed with: Sutures Lac/Wound length In cm: 1 Suture Size: 4-0 # of Sutures: 3 Suture Type: Simple Tetanus Status Addressed: Yes Complications: No Course - Orders/Labs/Meds Orders: Active Orders 24 hr Category Date Time Status Lidocaine 1% [Xylocaine-MPF 1%] Med 07/06/19 03:01 Once 5 ml INJECT ONETIME ONE Departure - Departure Time of Disposition: 03:20 Disposition: Home, Self-Care 01 Condition: Good Clinical Impression: Laceration - Discharge Information *PRESCRIPTION DRUG MONITORING PROGRAM REVIEWED*: Not Applicable *COPY OF PRESCRIPTION DRUG MONITORING REPORT IN PATIENT SUDHEER: Not Applicable Instructions: Laceration Care, Adult, [id number] Additional Instructions: 1. Rest 2. Keep the area clean and dry 3. Can use tylenol and ibuprofen as needed for pain and discomfort 4. Diet as tolerated 5. Activity as tolerated 6. Elevated the injured area above the level of the heart to decrease swelling and discomfort if applicable 7. Can use ice 3-4 times a day at 20-minute intervals to help with any swelling and discomfort 8. Follow-up with your primary care provider symptoms continue or to progress 9. Follow with any questions or concerns 10. Discharge information has been provided regarding your injury and wound care has been provided 11. Avoid an public pools or hot tubes until wound is healed. 12. Follow up in the Clinic in 10 days for removal of sutures - My Orders Last 24 Hours: My Active Orders 07/06/19 03:01 Lidocaine 1% [Xylocaine-MPF 1%] 5 ml INJECT ONETIME ONE - Assessment/Plan Last 24 Hours: My Active Orders 07/06/19 03:01 Lidocaine 1% [Xylocaine-MPF 1%] 5 ml INJECT ONETIME ONE Assessment:: 1. laceration Plan: 1. Wound cleansing completed 2. Laceration repair completed 3. Tdap vaccine history completed 4. Education regarding wound care, dressing changes, OTC medications, activity, diet, follow up care and when to seek care if warrented provided 5. Patient is to return to the clinic in 10 days to have sutures site evaluated and removed 6. Patient was encouraged to call or return if any questions or concerns arise.
== END 2019-07-06 03:29 | disposition home or self-care (01) ==
LOC: VM.ED 02:30
DX: S61.214A Laceration without foreign body of right ring finger without damage to nail, initial encounter (principal); W26.8XXA Contact with other sharp object(s), not elsewhere classified, initial encounter
CPT/HCPCS: 12001; 99282; 99283-GF; J2001

== ENCOUNTER 2019-08-26 05:49 | Emergency (ER) | payer MEDICARE, MEDICAID ==
[2019-08-26 06:03] VITALS: BP 129/90; PULSE 65
[2019-08-26] MEDS ORDERED: Lidocaine 1% 30 ML SDV INJECT ONE (06:04)
--- NOTE | 2019-08-26 19:14 | EDM.PDOC ---
ED HPI GENERAL MEDICAL PROBLEM - General Chief Complaint: Laceration Stated Complaint: laceration Time Seen by Provider: 08/26/19 06:03 Source of Information: Reports: Patient History Limitations: Reports: No Limitations - History of Present Illness INITIAL COMMENTS - FREE TEXT/NARRATIVE: Pt. states that he cut his L hand with a fillet knife while out fishing. Pt. states that his tetanus is up to date. All injury is isolated to the L thenar eminence of the L hand and to the tip of the 5th digit of the L hand. Denies any injury elsewhere. Denies any numbness/tingling distal to the laceration to the palm. Pt. states that blood has been "shooting" out of the laceration. Onset: Today Onset Date: 08/26/19 Location: Reports: Upper Extremity, Left Quality: Reports: Sharp, Stabbing Severity: Moderate Left Hand Pain Score (Numeric/FACES): 10 - Related Data Allergies Allergy/AdvReac Type Severity Reaction Status Date / Time No Known Drug Allergies Allergy Other Verified 08/26/19 05:57 Home Meds: Home Meds . 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 ED EXAM, SKIN/RASH Exam: See Below Exam Limited By: No Limitations General Appearance: Alert, WD/WN, No Apparent Distress Extremities: Other (Approx. 3 cm laceration to palm of L hand. CMS is intact. Laceration is bleeding briskly. No duskiness or discoloration to the thumb. Cap refill L 2 seconds. No obvious injury to deep structures of the hand. Movement is preserved.) ED SKIN PROCEDURES - Laceration/Wound Repair Left Hand Appearance: Subcutaneous Distal NVT: Neuro & Vascular Intact, No Tendon Injury Anesthetic Type: Local Local Anesthesia - Lidocaine (Xylocaine): 1% Plain Local Anesthetic Volume: 5cc Skin Prep: Chlorhexidine (Hibiciens), Saline Saline Irrigation (cc's): 1,000 Exploration/Debridement/Repair: Wound Explored Closed with: Sutures Lac/Wound length In cm: 3 Suture Size: 3-0 # of Sutures: 5 Suture Type: Nylon Progress/Comments: Pt. also had a near complete avulsion to the tip of the L little finger that was completely devitalized and hanging by a small piece of skin. This was anesthetized and remove without difficulty. Course - Vital Signs Last Recorded V/S: Last Vital Signs Temp 35.9 C L 08/26/19 05:57 Pulse 65 08/26/19 05:57 Resp 16 08/26/19 05:57 BP 129/90 08/26/19 05:57 Pulse Ox 98 08/26/19 05:57 - Orders/Labs/Meds Meds: Medications Discontinued Medications Generic Name Dose Route Start Last Admin Trade Name Zack PRN Reason Stop Dose Admin Lidocaine HCl 30 ml 08/26/19 06:04 08/26/19 06:08 Xylocaine-Mpf 1% INJECT 08/26/19 06:05 30 ml ONETIME ONE Administration Departure - Departure Time of Disposition: 19:16 Disposition: Home, Self-Care 01 Clinical Impression: Hand laceration - Discharge Information Instructions: Laceration Care, Adult Referrals: PCP,Unobtain [Primary Care Provider] - Forms: ED Department Discharge Additional Instructions: Sutures out of hand in 14 days. This can be done in the clinic. Keep dry and bandaged for 48 hours. Keep the hand as immobile as possible for 7-10 days. No lifting over 20 pounds with the L hand, as we need the sutures to stay in place. Change dressing daily. clean with running water. Do not submerge. Return to ER if you have redness, swelling, or discharge from the area. If you can stop or cut down on smoking, this would help with healing. Sepsis Event Note (ED) - Evaluation Sepsis Screening Result: No Definite Risk - Assessment/Plan Plan: Sutures out of hand in 14 days. This can be done in the clinic. Keep dry and bandaged for 48 hours. Keep the hand as immobile as possible for 7-10 days. No lifting over 20 pounds with the L hand, as we need the sutures to stay in place. Change dressing daily. clean with running water. Do not submerge. Return to ER if you have redness, swelling, or discharge from the area. If you can stop or cut down on smoking, this would help with healing.
== END 2019-08-26 06:47 | disposition home or self-care (01) ==
LOC: VM.ED 05:49
DX: S61.412A Laceration without foreign body of left hand, initial encounter (principal); F17.210 Nicotine dependence, cigarettes, uncomplicated; W26.0XXA Contact with knife, initial encounter
CPT/HCPCS: 12002; 99282; 99283; J2001

== ENCOUNTER 2019-10-01 11:47 | Emergency (ER) | payer MEDICAID, MEDICARE ==
--- NOTE | 2019-10-01 12:54 | CT ---
[id number] CT/CT Head WO IV EXAM: CT Head WO IV CLINICAL DATA: TRAUMA COMPARISON: NO PREVIOUS SIMILAR EXAM IS AVAILABLE FOR COMPARISON. FINDINGS: There is no mass or mass effect. There is no hemorrhage or hydrocephalus. There are no extra-axial fluid collections. There are no sites of abnormal attenuation. IMPRESSION: NO PLAIN CT EVIDENCE OF ACUTE INTRACRANIAL PROCESS. Silas Ambriz MD 10/01/19 [id number] Thank you for allowing us to participate in the care of your patient.
--- NOTE | 2019-10-01 12:56 | CT ---
[id number] CT/CT Facial Bones WO IV Exam: CT Facial Bones WO IV Clinical Data: TRAUMA COMPARISON: NO PREVIOUS SIMILAR EXAM IS AVAILABLE FINDINGS: No fracture is seen The sinuses are aerated There is no orbital emphysema IMPRESSION: NO FACIAL FRACTURE Silas Ambriz MD 10/01/19 [id number] Thank you for allowing us to participate in the care of your patient.
[2019-10-01 13:07] VITALS: BP 137/89; PULSE 92
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
== END 2019-10-01 14:00 | disposition home or self-care (01) ==
LOC: VM.ED 11:47
DX: S00.03XA Contusion of scalp, initial encounter (principal); S00.83XA Contusion of other part of head, initial encounter; F17.210 Nicotine dependence, cigarettes, uncomplicated; Y04.8XXA Assault by other bodily force, initial encounter
CPT/HCPCS: 70450; 70486; 99283; 99283-25; J2001

== ENCOUNTER 2020-10-02 12:03 | Emergency (ER) | payer MEDICARE, MEDICAID ==
[2020-10-02] MEDS ORDERED: Ketorolac 30 MG/ML SDV IVPUSH ONE (12:16)
[2020-10-02] MEDS ORDERED: Sodium Chloride 0.9% 1,000 ML IV ONE (12:16)
[2020-10-02] MEDS ORDERED: Ondansetron 4 MG/2 ML SDV IVPUSH ONE (12:16)
[2020-10-02] MEDS ORDERED: cefTRIAXone 1 GM Vial IVPUSH ONE (12:16)
--- NOTE | 2020-10-02 13:00 | EDM.PDOC ---
ED HPI GENERAL MEDICAL PROBLEM - General Chief Complaint: General Stated Complaint: ABSESS TOOTH AND POSSIBLE FOOD POISONING Time Seen by Provider: 10/02/20 12:10 Source of Information: Reports: Patient History Limitations: Reports: No Limitations - History of Present Illness INITIAL COMMENTS - FREE TEXT/NARRATIVE: Patient comes into the emergency department with complaints of a dental abscess as well as nausea vomiting. Patient states that he has had dental caries for an extended amount of time and that has slowly increased in intensity in the last week. Patient also states that he has increased nausea and vomiting. Patient does have a strong history of use of methamphetamine and states that he did use methamphetamine proximally 1 week ago. He Denies having any fever, chest pain, shortness of breath, dizziness, lightheadedness, or concerns. Patient states he has been relatively healthy. He does know that he needs to seek dental care however he has not sought out dental care in a long period of time. He has noticed in the last week that he has had increase of swelling in the right lower jaw. He is also had some discharge noted in the mouth. Onset: Gradual Duration: Constant Location: Reports: Face Quality: Reports: Throbbing Severity: Moderate Improves with: Reports: None Worsens with: Reports: None Context: Reports: Other Associated Symptoms: Reports: Loss of Appetite, Nausea/Vomiting - Related Data Allergies Allergy/AdvReac Type Severity Reaction Status Date / Time No Known Drug Allergies Allergy Other Verified 10/01/19 12:29 Home Meds: Home Meds Amoxicillin/Potassium Clav [Augmentin 875-125 Tablet] 1 each PO BID 10 Days #20 tablet 10/02/20 [Rx] Past Medical History - Past Health History Medical/Surgical History: Denies Medical/Surgical History Oncologic (Cancer) History: Reports: Prostate, Other (See Below) Other Oncologic History: 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 Constitutional: Reports: No Symptoms HEENT: Reports: Dental Pain Respiratory: Reports: No Symptoms Cardiovascular: Reports: No Symptoms Endocrine: Reports: No Symptoms GI/Abdominal: Reports: No Symptoms : Reports: No Symptoms Musculoskeletal: Reports: No Symptoms Skin: Reports: No Symptoms Neurological: Reports: No Symptoms Psychiatric: Reports: No Symptoms Hematologic/Lymphatic: Reports: No Symptoms Immunologic: Reports: No Symptoms ED EXAM, GENERAL - Physical Exam Exam: See Below Exam Limited By: No Limitations General Appearance: Alert, WD/WN, No Apparent Distress Eye Exam: Bilateral Eye: EOMI, PERRL Ears: Normal External Exam, Normal Canal, Hearing Grossly Normal Nose: Normal Inspection, Normal Mucosa, No Blood Throat/Mouth: Other (multiple dental carries. right lower jaw tenderness and mild swelling noted. pus noted over back molar region ) Head: Atraumatic, Normocephalic Neck: Normal Inspection, Supple, Non-Tender, Full Range of Motion Respiratory/Chest: No Respiratory Distress, Lungs Clear, Normal Breath Sounds, No Accessory Muscle Use, Chest Non-Tender Cardiovascular: Normal Peripheral Pulses, Regular Rate, Rhythm, No Edema GI/Abdominal: Normal Bowel Sounds, Soft, Non-Tender, No Organomegaly, No Distention, No Abnormal Bruit Back Exam: Normal Inspection, Full Range of Motion Extremities: Normal Inspection, Normal Range of Motion, Non-Tender, Normal Capillary Refill Neurological: Oriented, Normal Cognition, Normal Gait Psychiatric: Normal Affect, Normal Mood Skin Exam: Warm, Intact Course - Orders/Labs/Meds Orders: Active Orders 24 hr Category Date Time Status Sodium Chloride 0.9% [Normal Saline] 1,000 ml Med 10/02/20 12:16 Active IV ONETIME Medication Orders Sodium Chloride (Normal Saline) 1,000 mls @ 999 mls/hr IV ONETIME ONE Stop: 10/02/20 13:16 Last Admin: 10/02/20 12:29 Dose: 999 mls/hr Documented by: BETTY Meds: Medications Generic Name Dose Route Start Last Admin Trade Name Freq PRN Reason Stop Dose Admin Sodium Chloride 1,000 mls @ 999 mls/hr 10/02/20 12:16 10/02/20 12:29 Normal Saline IV 10/02/20 13:16 999 mls/hr ONETIME ONE Administration Discontinued Medications Generic Name Dose Route Start Last Admin Trade Name Freq PRN Reason Stop Dose Admin Ceftriaxone Sodium 1 gm 10/02/20 12:16 10/02/20 12:29 Ceftriaxone 1 Gm Vial IVPUSH 10/02/20 12:17 1 gm STAT ONE Administration Ketorolac Tromethamine 30 mg 10/02/20 12:16 10/02/20 12:29 Ketorolac 30 Mg/Ml Sdv IVPUSH 10/02/20 12:17 30 mg ONETIME ONE Administration Ondansetron HCl 4 mg 10/02/20 12:16 10/02/20 12:29 Ondansetron 4 Mg/2 Ml Sdv IVPUSH 10/02/20 12:17 4 mg ONETIME ONE Administration Departure - Departure Time of Disposition: 13:00 Disposition: Home, Self-Care 01 Condition: Good Clinical Impression: Dental abscess Nausea & vomiting Qualifiers: Vomiting type: unspecified Vomiting Intractability: non-intractable Qualified Code(s): R11.2 - Nausea with vomiting, unspecified - Discharge Information *PRESCRIPTION DRUG MONITORING PROGRAM REVIEWED*: Not Applicable *COPY OF PRESCRIPTION DRUG MONITORING REPORT IN PATIENT SUDHEER: Not Applicable Prescriptions: Amoxicillin/Potassium Clav [Augmentin 875-125 Tablet] 1 each PO BID 10 Days #20 tablet Instructions: Nausea, Adult, Dental Abscess, Amoxicillin; Clavulanic Acid Tablets Forms: ED Department Discharge, ED Return to Work/School Form Additional Instructions: 1. rest 2. increase your water intake 3. Take all antibiotics as prescribed even if feeling better 4. Take a probiotic while on antibiotics to help promote healthy GI motility 5. Activity and diet as tolerated 6. Can use Ibuprofen and tylenol for any fever or discomfort 7. Follow up with your PCP or return if symptoms progress or worsen 8. Education provided to you regarding your illness, probiotics, antibiotic prescribed 9. Call with any questions or concerns - My Orders Last 24 Hours: My Active Orders 10/02/20 12:16 Sodium Chloride 0.9% [Normal Saline] 1,000 ml IV ONETIME - Assessment/Plan Last 24 Hours: My Active Orders 10/02/20 12:16 Sodium Chloride 0.9% [Normal Saline] 1,000 ml IV ONETIME Assessment:: 1. dental abscess 2. nausea/vomiting Plan: 1. Rocephin 1gm given in ER 2. IV initiated in the emergency department 3. IV fluids provided 4. Pain medication given for severe pain and discomfort- toradol given in ER 5. Zofran given in the ER to help with nausea 6. Patient and nursing staff was updated regarding the plan of care 7. Education provided the patient regarding activity, diet, rest, over-the-co unter medication modalities, and follow-up care was provided 8. Patient and family are agreeable to the above plan of care 9. All questions and concerns were addressed with the patient and family prior to discharge
[2020-10-02 15:31] VITALS: BP 121/66; PULSE 54
== END 2020-10-02 13:10 | disposition home or self-care (01) ==
LOC: VM.ED 12:03
DX: K04.7 Periapical abscess without sinus (principal); K02.9 Dental caries, unspecified; R11.2 Nausea with vomiting, unspecified
CPT/HCPCS: 96374; 96375; 99283; 99283-25; J0696; J1885; J2405; J7030

== ENCOUNTER 2020-11-22 12:15 | Emergency (ER) | payer MEDICARE, MEDICAID ==
--- NOTE | 2020-11-22 13:42 | EDM.PDOC ---
ED HPI GENERAL MEDICAL PROBLEM - General Chief Complaint: General Stated Complaint: COLD Time Seen by Provider: 11/22/20 13:00 Source of Information: Reports: Patient History Limitations: Reports: No Limitations - History of Present Illness INITIAL COMMENTS - FREE TEXT/NARRATIVE: Patient presents with his girlfriend for upper respiratory symptoms. He states just today he developed irritated eyes, body aches, headaches and mild soer throat. He was working all this last week with someone that was ill and received a phone call that this person was positive for covid 19. Patient decided to come into the ED for testing. No covid in the past, no vaccine. Had his port removed last week at the completion of testicular cancer treatment. 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 orchiectomy Other Surgical History Comment: port a cath placement and removal Social & Family History - Alcohol Use Alcohol Use History: Yes ED ROS GENERAL - Review of Systems Review Of Systems: See Below Constitutional: Reports: Fatigue HEENT: Reports: Eye Pain, Throat Pain Respiratory: Reports: No Symptoms Cardiovascular: Reports: No Symptoms Endocrine: Reports: No Symptoms GI/Abdominal: Reports: No Symptoms : Reports: No Symptoms Musculoskeletal: Reports: No Symptoms Skin: Reports: No Symptoms Neurological: Reports: Headache Psychiatric: Reports: No Symptoms Hematologic/Lymphatic: Reports: No Symptoms Immunologic: Reports: No Symptoms ED EXAM, GENERAL - Physical Exam Exam: See Below Exam Limited By: No Limitations General Appearance: Alert, WD/WN, No Apparent Distress Eye Exam: Bilateral Eye: Conjunctival Injection, EOMI, Normal Inspection, PERRL Ears: Normal External Exam, Normal Canal, Normal TMs Nose: Normal Inspection, Normal Mucosa Throat/Mouth: Normal Lips, Normal Teeth, Normal Voice, Other (minimal posterior oropharynx erythema, no exudate. ) Head: Atraumatic Neck: Normal Inspection, Supple Respiratory/Chest: No Respiratory Distress, Lungs Clear, Normal Breath Sounds, Other (port removal site without signs of infection or wound dehiscence) Cardiovascular: Normal Peripheral Pulses, Regular Rate, Rhythm, No Edema, No Murmur Extremities: Normal Inspection, Normal Range of Motion Course - Orders/Labs/Meds Labs: Laboratory Tests 11/22/20 Range/Units 13:03 SARS CoV-2 RNA Rapid MIRELLA Negative (NEGATIVE) - Re-Assessments/Exams Free Text/Narrative Re-Assessment/Exam: 11/22/20 13:38 Covid 19 test was negative today. You need to retest last this week when you are at day 3-5 of your symptoms. Check community resources as this should not be a ER or clinic visit. Go home and quarantine. STay hydrated, wear your mask at all times and use tylenol or motrin for your symptoms. Be cautious of using dayquil or nyquil type combinations as they contain tylenol in them also. Follow up with PCP. Do not break quarantine for the next 3-5 days until you have another negative covid result. Stay home. Departure - Departure Time of Disposition: 13:35 Disposition: Home, Self-Care 01 Clinical Impression: Suspected COVID-19 virus infection - Discharge Information Instructions: Airborne Precautions, [id number], Things to Know about the COVID-19 Pandemic - CDC (05/27/2020), 10 Things You Can Do to Manage Your COVID- 19 Symptoms at Home - [facility] [place] (09/11/2019), Symptoms of Coronavirus - [facility] [place] (05/04/2020), COVID-19: Quarantine vs. Isolation - [facility] [place] (02/27/2020) Referrals: Bob Hale PA-C [Primary Care Provider] - Forms: ED Department Discharge, ED Return to Work/School Form Additional Instructions: Covid 19 test was negative today. You need to retest last this week when you are at day 3-5 of your symptoms. Check community resources as this should not be a ER or clinic visit. Go home and quarantine. STay hydrated, wear your mask at all times and use tylenol or motrin for your symptoms. Be cautious of using dayquil or nyquil type combinations as they contain tylenol in them also. Follow up with PCP. Do not break quarantine for the next 3-5 days until you have another negative covid result. Stay home.
[2020-11-22 14:33] VITALS: BP 118/61; PULSE 69
== END 2020-11-22 13:44 | disposition home or self-care (01) ==
LOC: VM.ED 12:15
DX: R51.9 Headache, unspecified (principal); J02.9 Acute pharyngitis, unspecified; H57.89 Other specified disorders of eye and adnexa; Z20.822 Contact with and (suspected) exposure to COVID-19
CPT/HCPCS: 99283; U0002

== ENCOUNTER 2020-12-05 15:39 | Emergency (ER) | payer MEDICARE, MEDICAID ==
[2020-12-05 16:26] VITALS: BP 106/63; PULSE 73
--- NOTE | 2020-12-05 16:40 | EDM.PDOC ---
ED HPI GENERAL MEDICAL PROBLEM - General Chief Complaint: General Stated Complaint: FATIGUE, FEVER, COUGH Time Seen by Provider: 12/05/20 16:13 Source of Information: Reports: Patient History Limitations: Reports: No Limitations - History of Present Illness INITIAL COMMENTS - FREE TEXT/NARRATIVE: Pt. presents to ER with complaints of fever, fatigue, mild cough, and congestion. He has been exposed to covid 19. Was seen in the ER with similar symptoms on 11/22. Covid was negative at that time. He was told to quarantine and follow-up in the clinic, but he did not as he was feeling better. Mild nausea, no vomiting. Denies any chest pain or shortness of breath. Complains of mild headache. Denies any lightheadedness or syncope. Onset Date: 12/04/20 Location: Reports: Generalized Associated Symptoms: Reports: Cough, Fever/Chills, Malaise, Nausea/Vomiting General Body Aches Pain Score (Numeric/FACES): 4 - Related Data Allergies Allergy/AdvReac Type Severity Reaction Status Date / Time No Known Drug Allergies Allergy Other Verified 12/05/20 16:01 Home Meds: Home Meds . 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 orchiectomy Other Surgical History Comment: port a cath placement and removal Social & Family History - Family History Family Medical History: No Pertinent Family History ED ROS GENERAL - Review of Systems Review Of Systems: See Below Constitutional: Reports: Fever, Fatigue HEENT: Reports: No Symptoms Respiratory: Reports: Cough Cardiovascular: Reports: No Symptoms Endocrine: Reports: No Symptoms GI/Abdominal: Reports: Nausea : Reports: No Symptoms Musculoskeletal: Reports: No Symptoms Skin: Reports: No Symptoms Neurological: Reports: No Symptoms Psychiatric: Reports: No Symptoms Hematologic/Lymphatic: Reports: No Symptoms Immunologic: Reports: No Symptoms ED EXAM, GENERAL - Physical Exam Exam: See Below Exam Limited By: No Limitations General Appearance: Alert, WD/WN, No Apparent Distress Eye Exam: Bilateral Eye: Conjunctival Injection, EOMI Ears: Normal External Exam, Normal Canal, Hearing Grossly Normal, Normal TMs Ear Exam: Bilateral Ear: Auricle Normal, Canal Normal, TM normal Nose: Normal Mucosa, No Blood Throat/Mouth: Normal Lips, Other (Poor dentition. Extensive tooth decay. No active infection noted.) Head: Atraumatic, Normocephalic Neck: Normal Inspection, Supple, Non-Tender, Full Range of Motion Respiratory/Chest: No Respiratory Distress, Lungs Clear, Normal Breath Sounds, No Accessory Muscle Use, Chest Non-Tender Cardiovascular: Normal Peripheral Pulses, Regular Rate, Rhythm, No JVD GI/Abdominal: Non-Tender, No Distention, No Mass (Male) Exam: Deferred Rectal (Males) Exam: Deferred Back Exam: Normal Inspection, Full Range of Motion Neurological: Alert, Oriented, CN II-XII Intact, Normal Cognition, Normal Gait, Normal Reflexes, No Motor/Sensory Deficits Psychiatric: Normal Affect, Normal Mood Skin Exam: Warm, Dry, Intact, Normal Color, No Rash Lymphatic: No Adenopathy Course - Vital Signs Last Recorded V/S: Last Vital Signs Temp 36.9 C 12/05/20 16:18 Pulse 73 12/05/20 16:18 Resp 14 12/05/20 16:18 BP 106/63 12/05/20 16:18 Pulse Ox 98 12/05/20 16:18 - Orders/Labs/Meds Labs: Laboratory Tests 12/05/20 Range/Units 15:51 SARS CoV-2 RNA Rapid MIRELLA Positive H (NEGATIVE) Departure - Departure Time of Disposition: 16:42 Disposition: Home, Self-Care 01 Condition: Good Clinical Impression: COVID-19 - Discharge Information Instructions: COVID-19 Frequently Asked Questions, Symptoms of COVID-19 - CDC (05/04/2020) Referrals: Bob Hale PA-C [Primary Care Provider] - Forms: ED Department Discharge Additional Instructions: Home to rest. Quarentine at home. You will be contacted by the Health Dept. on Monday regarding how long you have to do this for. Tylenol and ibuprofen as needed for fever/discomfort. Return to ER if you have any shortness of breath. Sepsis Event Note (ED) - Evaluation Sepsis Screening Result: No Definite Risk - Focused Exam Vital Signs: Vital Signs Temp Pulse Resp BP Pulse Ox 12/05/20 16:18 36.9 C 73 14 106/63 98 - Problem List Review Problem List Initiated/Reviewed/Updated: Yes - Assessment/Plan Plan: Pt. was discharged. Quarantine at home. He will be contacted by [place] health dept. Pt. denies not meet criteria for Regeneron. Vitals were all within normal limits. Advised to return to ER if he has trouble breathing. Tylenol and ibuprofen as needed for fever/discomfort. OTC dextromethorphan as needed for cough.
== END 2020-12-05 16:28 | disposition home or self-care (01) ==
LOC: SUPCPDRO 15:39 → VM.ED 15:39
DX: U07.1 COVID-19 (principal)
CPT/HCPCS: 99283; U0002

== ENCOUNTER 2023-08-22 18:16 | Emergency (ER) | payer MEDICAID, MEDICARE, OTHER ==
[2023-08-22 18:46] VITALS: BP 119/68; PULSE 57
[2023-08-22] MEDS: Fluorescein 1 MG Ophth Strip EYELF ONE (18:49)
[2023-08-22] MEDS: Proparacaine 0.5% Ophth Soln 15 ML Bottle EYELF ONE (18:49)
[2023-08-22] MEDS: Polymyxin B/Trimethoprim 10 ML Bottle EYEBOTH ONE (18:50)
== END 2023-08-22 18:55 | disposition home or self-care (01) ==
LOC: VM.ED 18:16
DX: S05.02XA Injury of conjunctiva and corneal abrasion without foreign body, left eye, initial encounter (principal); X58.XXXA Exposure to other specified factors, initial encounter
CPT/HCPCS: 99283; A9270; J3490